=== PATIENT | male | born 1995 | race Two or more races ===

== ENCOUNTER 2024-10-06 13:35 | Emergency (ER) | payer OTHER ==
[~2024-10-06] VITALS: Ht 188 cm; Wt 95.2 kg
[~2024-10-06 13:35] MED LIST: (None)20 M1 PO; AZIT250 PO; IBUP400 PO; IBUP800 PO; NO MEDS; OSEL75CA PO; OXYACE5T PO; Percocet 5-3251 EACH PO
[2024-10-06 13:42] VITALS: BP 141/101
[2024-10-06] MEDS ORDERED: AMOCLA875 PO (14:41)
[2024-10-06] MEDS ORDERED: Amoxicillin/Clavulanate K 875 MG Tab PO ONE (14:55)
== END 2024-10-06 15:06 | disposition home or self-care (01) ==
LOC: ER 13:35
DX: L03.011 Cellulitis of right finger (principal); F17.200 Nicotine dependence, unspecified, uncomplicated; Z88.2 Allergy status to sulfonamides; Z79.899 Other long term (current) drug therapy
CPT/HCPCS: A9270